=== PATIENT | female | born 1980 | race Caucasian/White ===

== ENCOUNTER 2017-07-12 21:22 | Emergency (ER) | payer SELFPAY ==
[2015-10-07 09:47] VITALS: BMI 31.8
[~2017-07-12 21:22] MED LIST: CETIRIZINE HCL5 MG PO; EFFEXOR XR150 MG PO; HYDROCHLOROTHIA25 MG PO; HYDROCODONE-APA1 TAB PO; ORTHO TRI-7 DAYSX1 PO
[2017-07-12 22:01] LABS: APPEARANCE CLEAR (CLEAR); BILIRUBIN NEGATIVE (NEGATIVE); COLOR YELLOW (YELLOW); GLUCOSE NEGATIVE (NEGATIVE); KETONE NEGATIVE (NEGATIVE); NITRITE NEGATIVE (NEGATIVE); PROTEIN NEGATIVE (NEGATIVE); SPECIFIC GRAVITY 1.015 (1.005-1.020); UROBILINOGEN NORMAL (NORMAL)
[2017-07-12 22:20] LABS: BASOPHILS 0.1 % (0-2); EOSINOPHILS 1.1 % (0-7); HEMATOCRIT 36.6 % (36.0-48.0); HEMOGLOBIN 11.8 g/dL (12-16); IMMATURE GRANULOCYTES 0.1 % (0-5); LYMPHOCYTES 19.7 % (15-50); MCH 26.2 pg (26.0-34.0); MCHC 32.2 g/dL (31.0-37.0); MCV 81.2 fL (80.0-100.0); MEAN PLATELET VOLUME 9.6 fL (7.4-10.4); MONOCYTES 7.6 % (2-11); NEUTROPHILS 71.4 % (40-80); PLATELET COUNT 234 10x3/uL (130-400); RBC 4.51 10x6/uL (4.00-5.40); RDW 16.1 % (11.5-14.5); WBC 8.8 10x3/uL (4.8-10.8)
== END 2017-07-12 23:18 | disposition home or self-care (01) ==
LOC: D.ER 21:22
PROVIDERS: Emergency Medicine
DX: R10.9 Unspecified abdominal pain (principal); R19.7 Diarrhea, unspecified; K58.9 Irritable bowel syndrome, unspecified

== ENCOUNTER → 2019-05-02 14:12 | Outpatient (CLI) | payer MEDICARE ==
[~2019-05-02] VITALS: Ht 161.3 cm; Wt 88.2 kg
[~2019-05-02 14:12] MED LIST changes: +BUPROPION XL300 MG; +ELIQUIS5 MG PO; +GLYCOPYRROLATE 2 MG; +PHENERGAN25 M1 PO
[2019-05-02 14:58] VITALS: BP 107/49; Ht 161.3 cm; Wt 88.2 kg
== END | disposition home or self-care (01) ==
LOC: D.OPS 14:12
PROVIDERS: ATTEND Internal Medicine Hematology & Oncology
DX: D50.9 Iron deficiency anemia, unspecified (principal); N18.9 Chronic kidney disease, unspecified

== ENCOUNTER → 2020-10-15 18:15 | Outpatient (CLI) | payer MEDICARE ==
[2019-05-02 14:58] VITALS: BMI 33.9
[2020-10-15 18:50] LABS: INR 1.59 (0.85-1.17); PROTIME 17.6 SECONDS (11.6-15.0)
== END | disposition home or self-care (01) ==
LOC: D.LABREF 18:15
PROVIDERS: ATTEND Family Medicine
DX: Z79.01 Long term (current) use of anticoagulants (principal)

== ENCOUNTER → 2020-10-19 18:36 | Outpatient (CLI) | payer MEDICARE ==
[2019-05-02 14:58] VITALS: BMI 33.9
[2020-10-20 09:05] LABS: INR 1.9 (0.85-1.17); PROTIME 20.2 SECONDS (11.6-15.0)
== END | disposition home or self-care (01) ==
LOC: D.LABREF 18:36
PROVIDERS: ATTEND Family Medicine
DX: Z79.01 Long term (current) use of anticoagulants (principal)

== ENCOUNTER → 2020-10-22 16:32 | Outpatient (CLI) | payer MEDICARE ==
[2019-05-02 14:58] VITALS: BMI 33.9
[2020-10-22 19:24] LABS: INR 2.28 (0.85-1.17); PROTIME 23.3 SECONDS (11.6-15.0)
== END | disposition home or self-care (01) ==
LOC: D.LABREF 16:32
PROVIDERS: ATTEND Family Medicine
DX: Z79.01 Long term (current) use of anticoagulants (principal)

== ENCOUNTER → 2020-10-29 19:16 | Outpatient (CLI) | payer MEDICARE ==
[2019-05-02 14:58] VITALS: BMI 33.9
[2020-10-29 19:40] LABS: INR 2.01 (0.85-1.17); PROTIME 21.1 SECONDS (11.6-15.0)
== END | disposition home or self-care (01) ==
LOC: D.LABREF 19:16
PROVIDERS: ATTEND Family Medicine
DX: Z79.01 Long term (current) use of anticoagulants (principal)